=== PATIENT | female | born 1980 | race Caucasian/White ===

== ENCOUNTER 2016-03-13 12:22 | Emergency (ER) | payer MEDICAID, OTHER ==
[~2016-03-13] VITALS: Ht 172.7 cm; Wt 90.5 kg
[~2016-03-13 12:22] MED LIST: PROM5SYR2 PO
[2016-03-13 12:32] VITALS: Ht 172.7 cm; Wt 90.5 kg
[2016-03-13] MEDS ORDERED: DEXAMETHASONE 10 MG/ML 1 ML INJ PO STA (13:22)
[2016-03-13] MEDS ORDERED: ALBUTEROL 0.083% (NEB) 2.5 MG/3 ML AMP NEB STA (13:22)
[2016-03-13] MEDS ORDERED: IPRATROPIUM (NEB) 0.5 MG/2.5 ML AMP NEB STA (13:22)
[2016-03-13 13:52] LABS: BASOPHIL # 0.1 10^3/ul (0.0-0.1); BASOPHILS % 1.1 % (0.0-2.0); EOSINOPHILS # 0.2 10^3/ul (0.0-0.5); HEMOGLOBIN 14.6 g/dl (12.0-16.0); LYMPHOCYTES # 2.1 10^3/ul (0.8-2.9); MEAN CORPUSCULAR HGB CONC 32.5 g/dl (32.0-37.0); MEAN PLATELET VOLUME 9.1 fl (7.4-10.4); MONOCYTE # 0.5 10^3/ul (0.3-0.9); MONOCYTES % 6.8 % (0.0-11.0); NEUTROPHIL # 4.4 10^3/ul (1.6-7.5); NEUTROPHILS % 60.1 % (39.0-77.0); PLATELET COUNT 260 10^3/UL (140-440); RED BLOOD COUNT 5.23 10^6/ul (4.20-5.40); RED CELL DISTRIBUTION WIDTH 16.1 % (11.5-14.5); UNCORRECTED WBC 7.3 10^3/ul (4.8-10.8); WHITE BLOOD COUNT 7.3 10^3/ul (4.8-10.8)
[2016-03-13 13:59] LABS: POTASSIUM 4.4 mmol/L (3.5-5.1)
[2016-03-13 14:02] LABS: CREATININE 0.67 mg/dl (0.44-1.00)
[2016-03-13 14:03] LABS: CALCIUM 8.2 mg/dl (8.4-10.2)
[2016-03-13 14:05] LABS: CONDITION 1; LH ANALYZER COMMENTS 1
[2016-03-13] MEDS ORDERED: ALBU8.5H3 INH (15:06)
[2016-03-13] MEDS ORDERED: PRED20TA PO (15:06)
[2016-03-13] MEDS ORDERED: UDROBDM PO (15:06)
[2016-03-13] MEDS ORDERED: AZIT250T94 PO (15:06)
--- NOTE | 2016-03-13 15:14 | ERD ---
ER Documentation Chief Complaint Date/Time DATE: 03/13/16 TIME: 15:09 Chief Complaint feels sob and has asthma donated plasma this am, HPI Patient says she has been sick a few weeks with a cough and sore throat. Today she donated plasma at the subsequently she felt short of breath and fatigue. She has donated plasma before. He has had intermittent wheezes as of breath cough for a few weeks. She has asthma and she is ran out of her inhaler. No fevers or chills she does have at times mucus from her nose. ROS All systems reviewed and are negative except as per history of present illness. Medications Home Meds Active Scripts Azithromycin* (Zithromax*) 250 Mg Tablet, 250 MG PO .ZPACK DIRECTED, #6 TAB TAKE 500 MG (2 TABS) THE FIRST DAY THEN 250 MG (1 TAB) DAYS 2-5 Prov:KISHOR AGRAWAL DO 03/13/16 Guaifenesin-Dextromethorphan* (Robitussin* DM) 100MG/10MG/5ML Syrup, 10 ML PO Q6H Y for COUGH, #120 ML Prov:KISHOR AGRAWAL DO 03/13/16 Prednisone* (Prednisone*) 20 Mg Tab, 20 MG PO BID for 3 Days, TAB Prov:KISHOR AGRAWAL DO 03/13/16 Albuterol Sulfate* (Proair HFA*) 8.5 Gm Hfa.aer.ad, 2 PUFF INH Q4H Y for WHEEZING AND SOB, #1 INHALER Prov:KISHOR AGRAWAL DO 03/13/16 Promethazine HCl/Codeine (Prometh-Codein 6.25-10 mg/5 ml) 5 Ml Syrup, 5 ML PO Q6 for 10 Days Prov:HOOD ALEX NP 03/12/15 Allergies Allergies: Coded Allergies: No Known Allergy (Unverified , 03/12/15) PMhx/Soc History of Surgery: Yes ( x2) Anesthesia Reaction: No Hx Neurological Disorder: No Hx Respiratory Disorders: Yes (ASTHMA) Hx Cardiac Disorders: No Hx Psychiatric Problems: No Hx Miscellaneous Medical Probl: No Hx Alcohol Use: No Hx Substance Use: No Hx Tobacco Use: Yes (5 CIGARETTES A DAY) Smoking Status: Current every day smoker Physical Exam Vitals Vital Signs Date Time Temp Pulse Resp B/P Pulse Ox O2 Delivery O2 Flow Rate FiO2 03/13/16 13:38 72 17 95 21 03/13/16 12:32 98.2 75 18 108/73 98 Physical Exam Const: [] Head: Atraumatic Eyes: Normal Conjunctiva PERRLA, EOMI ENT: Normal External Ears, Nose and Mouth. Neck: Full range of motion..~ No meningismus. Resp: Clear to auscultation bilaterally no wheezes rhonchi or rales but she has decreased breath sounds from the mid lung to the bases bilaterally no labored breathing Cardio: Regular rate and rhythm, no murmurs Abd: Soft, non tender, non distended. Normal bowel sounds Skin: No petechiae or rashes Back: No midline or flank tenderness Ext: No cyanosis, or edema Neur: Awake and alert Psych: Normal Mood and Affect Result Diagram: 03/13/16 1340 03/13/16 1340 Results 24 hrs Laboratory Tests Test 03/13/16 13:40 Anion Gap 13 Basophils # 0.110^3/ul Basophils % 1.1% Blood Morphology Comment Blood Urea Nitrogen 12mg/dl Calcium Level 8.2mg/dl Carbon Dioxide Level 28mmol/L Chloride Level 106mmol/L Creatinine 0.67mg/dl Eosinophils # 0.210^3/ul Eosinophils % 3.0% Glucose Level 85mg/dl Hematocrit 45.0% Hemoglobin 14.6g/dl Lymphocytes # 2.110^3/ul Lymphocytes % 29.0% Mean Corpuscular Hemoglobin 28.0pg Mean Corpuscular Hemoglobin Concent 32.5g/dl Mean Corpuscular Volume 86.0fl Mean Platelet Volume 9.1fl Monocytes # 0.510^3/ul Monocytes % 6.8% Neutrophils # 4.410^3/ul Neutrophils % 60.1% Nucleated Red Blood Cells # 0.010^3/ul Nucleated Red Blood Cells % 0.0/100WBC Platelet Count 15488^3/UL Potassium Level 4.4mmol/L Red Blood Count 5.2310^6/ul Red Cell Distribution Width 16.1% Sodium Level 143mmol/L White Blood Count 7.310^3/ul Current Medications Medications (Trade) Dose Ordered Sig/Emilia Route PRN Reason Start Time Stop Time Status Last Admin Dose Admin Albuterol (Proventil 0.083% (Neb)) 2.5 mg ONCE STAT NEB 03/13/16 13:22 03/13/16 13:24 DC 03/13/16 13:36 Ipratropium [place] (Atrovent 0.02% (Neb)) 1.5 mg ONCE STAT NEB 03/13/16 13:22 03/13/16 13:24 DC 03/13/16 13:36 Dexamethasone (Decadron) 10 mg ONCE STAT PO 03/13/16 13:22 03/13/16 13:24 DC 03/13/16 13:31 Procedures/MDM She felt better after the albuterol treatment and her lung sounds were significantly improved with clear breath sounds to the bases bilaterally. This is likely a worsening of her asthma and/or asthmatic bronchitis. Hemoglobin is stable at 40.6 so I do not think that is causing her shortness of breath or fatigue. I doubt anemia or pneumonia vital signs are stable her pulse ox is 90 % and she is breathing normally did improve with albuterol Atrovent and steroids for this is likely asthma worsening. Will give steroids for a few days for home and albuterol inhaler and antibiotics. Follow with PCP ED precautions discussed Departure Diagnosis: Primary Impression: Shortness of breath Additional Impressions: Asthmatic bronchitis Asthma severity: mild intermittent Asthma complication type: uncomplicated Qualified Code: J45.20 - Asthmatic bronchitis, mild intermittent, uncomplicated Cough Condition: Stable Patient Instructions: Asthma Medications KISHOR AGRAWAL DO Mar 13, 2016 15:14
== END 2016-03-13 15:19 | disposition home or self-care (01) ==
LOC: FTE 12:22
DX: R06.02 Shortness of breath (principal); F17.210 Nicotine dependence, cigarettes, uncomplicated; J45.21 Mild intermittent asthma with (acute) exacerbation; R05 Cough
CPT/HCPCS: 80048; 85025; 94664; J1100; Z7610

== ENCOUNTER 2016-04-30 12:39 | Emergency (ER) | payer MEDICAID ==
[~2016-04-30] VITALS: Ht 165.1 cm; Wt 86.4 kg
[~2016-04-30 12:39] MED LIST changes: +ALBU8.5H3 INH; +AZIT250T94 PO; +PRED20TA PO; +UDROBDM PO
[2016-04-30 12:42] VITALS: Ht 165.1 cm; Wt 86.4 kg
[2016-04-30] MEDS ORDERED: IPRATROPIUM (NEB) 0.5 MG/2.5 ML AMP NEB STA (14:54)
[2016-04-30] MEDS ORDERED: ALBUTEROL 0.5% (NEB) 2.5 MG/0.5 ML AMP NEB STA (14:54)
[2016-04-30] MEDS ORDERED: ACETAMINOPHEN 500 MG TAB PO STA (15:38)
--- NOTE | 2016-04-30 15:38 | ERD ---
ER Documentation Chief Complaint Date/Time DATE: 04/30/16 TIME: 15:34 Chief Complaint CAME IN VIA INTAKE DUE TO SOB WITH HX OF ASTHMA HPI The patient is a 35-year-old asthmatic female here with dry cough, chest congestion, nasal congestion, headache, and body aches for the last 3 days. She states that she had some mild shortness of breath earlier today despite using her rescue inhaler. She denies respiratory distress, chest pain, dizziness, lightheadedness, changes in mentation, fever, chills, nausea, vomiting, diarrhea , or any other symptoms or concerns at this time. She smokes approximately 3 cigarettes per day, however has not smoked for the last 3 days because she has had a cold. Positive sick contacts at work. No international travel. ROS All systems reviewed and are negative except as per history of present illness. Medications Home Meds Active Scripts Acetaminophen* (Tylenol*) 325 Mg Tablet, 2 TAB PO Q6 Y for PAIN AND OR ELEVATED TEMP, #20 TAB Prov:TRACEY MULLEN, SERVICE ORDER DISPATCHER 04/30/16 Albuterol Sulfate* (Ventolin HFA*) 18 Gm Hfa.aer.ad, 2 PUFF INHALATION Q4H, #1 INHALER Prov:TRACEY MULLEN, SERVICE ORDER DISPATCHER 04/30/16 Benzonatate* (Tessalon Perle*) 100 Mg Capsule, 100 MG PO Q8H Y for COUGH for 7 Days, CAP Prov:TRACEY MULLEN, SERVICE ORDER DISPATCHER 04/30/16 Azithromycin* (Zithromax*) 250 Mg Tablet, 250 MG PO .ZPACK DIRECTED, #6 TAB TAKE 500 MG (2 TABS) THE FIRST DAY THEN 250 MG (1 TAB) DAYS 2-5 Prov:KISHOR AGRAWAL DO 03/13/16 Guaifenesin-Dextromethorphan* (Robitussin* DM) 100MG/10MG/5ML Syrup, 10 ML PO Q6H Y for COUGH, #120 ML Prov:KISHOR AGRAWAL DO 03/13/16 Prednisone* (Prednisone*) 20 Mg Tab, 20 MG PO BID for 3 Days, TAB Prov:KISHOR AGRAWAL DO 03/13/16 Albuterol Sulfate* (Proair HFA*) 8.5 Gm Hfa.aer.ad, 2 PUFF INH Q4H Y for WHEEZING AND SOB, #1 INHALER Prov:KISHOR AGRAWAL DO 03/13/16 Promethazine HCl/Codeine (Prometh-Codein 6.25-10 mg/5 ml) 5 Ml Syrup, 5 ML PO Q6 for 10 Days Prov:HOOD ALEX Alex BRADFORD 03/12/15 Allergies Allergies: Coded Allergies: No Known Allergy (Unverified , 03/12/15) PMhx/Soc History of Surgery: Yes ( x2) Anesthesia Reaction: No Hx Neurological Disorder: No Hx Respiratory Disorders: Yes (ASTHMA) Hx Cardiac Disorders: No Hx Psychiatric Problems: No Hx Miscellaneous Medical Probl: No Hx Alcohol Use: No Hx Substance Use: No Hx Tobacco Use: Yes (5 CIGARETTES A DAY) Smoking Status: Current every day smoker Physical Exam Vitals Vital Signs Date Time Temp Pulse Resp B/P Pulse Ox O2 Delivery O2 Flow Rate FiO2 04/30/16 12:42 97.5 81 18 127/62 99 Physical Exam INITIAL VITAL SIGNS: Reviewed by me, no tachypnea, oximetry 99% on room air, afebrile GENERAL: Alert. Well developed and well nourished. No respiratory distress. No acute distress. Nontoxic appearing. HEAD: Head is normocephalic. Atraumatic. EYES: EOMI. PERRL. No scleral icterus. No conjunctival injection. No clear or purulent drainage. ENT: External ears, nose, and mouth normal. Ear canals clear. Tympanic membranes pearly/gibson and without erythema, bulging, retraction, or effusion. Nasal passages patent and without rhinorrhea. Oropharynx is clear. Airway patent. Uvula midline. Tonsils +2 and without erythema or exudates. Moist mucous membranes. NECK: Supple. Full range of motion. Trachea midline. No meningismus. No lymphadenopathy. RESPIRATORY: No tachypnea. + Mild expiratory wheeze left lower lobe. Otherwise, lungs are clear to auscultation bilaterally. No rales or rhonchi. No stridor. CV: Regular rate and rhythm. No murmurs, rubs, or gallops ABDOMEN: Soft, non-distended, non-tender. Bowel sounds normal in all quadrants. BACK: No CVA tenderness. Full ROM. EXTREMITIES: No obvious deformity. No clubbing or cyanosis. No edema. SKIN: Warm and dry. No diaphoresis. No obvious rashes or lesions. NEUROLOGIC: Alert and oriented x 3. Appropriate. Face is symmetric. Speech is normal. Moves all extremities equally. Results 24 hrs Current Medications Medications (Trade) Dose Ordered Sig/Emilia Route PRN Reason Start Time Stop Time Status Last Admin Dose Admin Albuterol (Proventil 0.5% (Neb)) 5 mg ONCE STAT NEB 04/30/16 14:54 04/30/16 14:57 DC 04/30/16 15:07 Ipratropium [place] (Atrovent 0.02% (Neb)) 0.5 mg ONCE STAT NEB 04/30/16 14:54 04/30/16 14:57 DC 04/30/16 15:07 Acetaminophen (Tylenol Tab) 1,000 mg ONCE STAT PO 04/30/16 15:38 04/30/16 15:39 DC 04/30/16 15:43 [place] [id number] Radiology Main Line: [phone] DIAGNOSTIC IMAGING REPORT Patient: SIDRA GAMBINO : 1980 Age: 35 Sex: F MR #: [id number] DOS: 04/30/16 1454 Ordering MD: TRACEY MULLEN NP Location: [facility] Room/Bed: PROCEDURE: XR Chest. CLINICAL INDICATION: Exacerbation of asthma TECHNIQUE: Chest AP portable. COMPARISON: 03/12/2015 FINDINGS: The mediastinal structures are unremarkable. The heart is normal in size and configuration. The pulmonary vascularity is normal. The lung powell are unremarkable. No consolidation is identified. The pleural spaces are unremarkable. The axial skeleton is unremarkable. IMPRESSION: No active intrathoracic disease. RPTAT: HGDB .Rogerio Churchill MD, Date Time Electronically viewed and signed by .Rogerio Churchill MD, on 04/30/2016 15:54 .B/ CC: TRACEY MULLEN, SERVICE ORDER DISPATCHER Procedures/MDM Nursing Notes Reviewed Previous Medical Records requested via [facility]. EMERGENCY DEPARTMENT COURSE / MEDICAL DECISION MAKING: The patient comes to the ED secondary to dry cough, chest congestion, nasal congestion, headache, body ache for 3 days. Mild shortness of breath earlier today despite use of her albuterol inhaler. Differential diagnosis upon initial evaluation includes but is not limited to: Asthma exacerbation, viral syndrome, URI, pneumonia, sepsis, bronchitis, meningitis, and others. The patient was treated with breathing treatment of albuterol 5 mL and ipratropium bromide 0.5 mL, Tylenol 1 g by mouth with good relief. On reassessment, the patient states that she feels well and wishes to be discharged home at this time in order to rest. She requested a work note for today and tomorrow. Chest x-ray per radiology report: IMPRESSION: No active intrathoracic disease. Final impression: Mild asthma exacerbation Viral syndrome Based on patient's history of present illness and physical examination the decision was made to discharge. The patient was re-evaluated after ED treatment and stabilizing measures, and symptoms have improved. There is no evidence of life threatening injuries or illnesses at this time. The patient's repeat physical exam was benign. Her lungs were clear to auscultation bilaterally without any wheezes, rhonchi, rales, or stridor. She was in no respiratory distress. No tachypnea. Afebrile. Negative chest x-ray. She reported feeling much better and requested to be discharged home. Given her history of present illness, physical exam findings, x-ray findings, well appearance, afebrile, oximetry 99% on room air, no headache, no neck soreness or stiffness, clear oropharynx without erythema or exudates, I have low suspicion at this time for serious bacterial illness, pneumonia, sepsis, or meningitis. On re-examination, patient resting in no distress, stable vital signs, reports feeling better and safe for discharge with outpatient follow up with PMD in 1-2 days. Patient given return precautions. She verbalized understanding and agreed to return precautions. She will return immediately for any new or worsening symptoms. She will get plenty of fluids and plenty of rest. She will cover her cough and perform good hand hygiene. Prescriptions Tylenol Albuterol Devonte Mercedes Departure Diagnosis: Primary Impression: Asthma exacerbation, mild Additional Impression: Viral syndrome Condition: Stable TRACEY MULLEN, SERVICE ORDER DISPATCHER Apr 30, 2016 15:38
--- NOTE | 2016-04-30 15:55 | RADRPT ---
PROCEDURE: XR Chest. CLINICAL INDICATION: Exacerbation of asthma TECHNIQUE: Chest AP portable. COMPARISON: 03/12/2015 FINDINGS: The mediastinal structures are unremarkable. The heart is normal in size and configuration. The pu lmonary vascularity is normal. The lung powell are unremarkable. No consolidation is identified. The pleural spaces are unremarkable. The axial skeleton is unremarkable. IMPRESSION: No active intrathoracic disease. RPTAT: HGDB .Rogerio Churchill MD, MD Date Time Electronically viewed and signed by .Rogerio Churchill MD, MD on 04/30/2016 15:54 .B/
[2016-04-30] MEDS ORDERED: BENZ100C70 PO (15:58)
[2016-04-30] MEDS ORDERED: ACET325T33 PO (15:58)
[2016-04-30] MEDS ORDERED: ALBU18HF INHALATION (15:58)
== END 2016-04-30 16:18 | disposition home or self-care (01) ==
LOC: FTE 12:39
DX: J45.901 Unspecified asthma with (acute) exacerbation (principal); B34.9 Viral infection, unspecified; F17.210 Nicotine dependence, cigarettes, uncomplicated
CPT/HCPCS: 71010; 94664; Z7502; Z7610